=== PATIENT | male | born 1960 | race Caucasian/White ===

== ENCOUNTER 2017-12-16 02:53 | Inpatient (IN) | payer BC ==
[~2017-12-16] VITALS: Ht 167.6 cm; Wt 93.1 kg
[2017-12-16 04:18] LABS: Basophils # (auto) 0.1 uL; Basophils % (auto) 0.5 % (0.0-2.0); Eosinophils # (auto) 0.4 uL; Eosinophils % (auto) 1.3 % (0.0-7.0); Hematocrit 42.2 % (41.0-53.0); Hemoglobin 14.4 g/dL (13.5-17.5); Lymphocytes # (auto) 1.1 uL; Lymphocytes % (auto) 3.9 % (10.0-50.0); Mean Corpuscular Hemoglobin 32.3 pg (28.0-32.0); Mean Corpuscular Hgb Conc. 34.1 g/dL (32.0-36.0); Mean Corpuscular Volume 94.6 fL (80.0-100.0); Monocytes # (auto) 1.2 uL; Monocytes % (auto) 4.5 % (0.0-12.0); Neutrophils # (auto) 24.5 uL; Neutrophils % (auto) 89.8 % (37.0-80.0); Platelet Count (auto) 142 10^3/uL (140-450); Red Blood Cells 4.46 10^6/uL (4.5-5.90); Red Cell Distribution Width 13.5 % (11.8-14.3); White Blood Cell 27.2 10^3/uL (4.4-10.8)
[2017-12-16 04:20] LABS: Alanine Aminotransferase 24 U/L (16-61); Albumin 3.1 g/dL (3.4-5.0); Anion Gap 10 (5-15); Aspartate Aminotransferase 15 U/L (15-37); BUN/Creatinine Ratio 19.8; Blood Urea Nitrogen 17 mg/dL (7-18); Calcium 8.3 mg/dL (8.5-10.1); Carbon Dioxide 23 mmol/L (21-32); Chloride 108 mmol/L (98-107); GFR African American 118 mL/min; GFR Non-African American 97 mL/min; Glucose 105 mg/dL (74-106); Potassium 3.8 mmol/L (3.5-5.1); Sodium 141 mmol/L (136-145)
[2017-12-16] MEDS ORDERED: fentaNYL CITRATE 5 ML ONE ×2 (04:22→04:57)
[2017-12-16 04:25] LABS: Alkaline Phosphatase 49 U/L (45-117); Bilirubin, Total 0.7 mg/dL (0.2-1.0); Total Protein 5.8 g/dL (6.4-8.2)
[2017-12-16] MEDS ORDERED: fentaNYL CITRATE 100 MCG/2 ML VL IV ONE ×2 (04:30→05:15)
[2017-12-16] MEDS ORDERED: CHOL20007 OR (05:21)
[2017-12-16] MEDS ORDERED: DOCU100T15 PO (05:21)
[2017-12-16] MEDS ORDERED: CEPH-37 PO (05:21)
[2017-12-16] MEDS ORDERED: DEXA0.5E4 PO (05:21)
[2017-12-16] MEDS ORDERED: MORP15TA PO (05:21)
[2017-12-16] MEDS ORDERED: FLUC200T50 PO (05:21)
[2017-12-16] MEDS ORDERED: LORA-622 PO (05:21)
[2017-12-16] MEDS ORDERED: SULF400T11 PO (05:21)
[2017-12-16] MEDS ORDERED: ACYC400T GT (05:21)
[2017-12-16] MEDS ORDERED: IOHEXOL 350 MG/ML 100ML IJ ONE (05:27)
[2017-12-16] MEDS ORDERED: LORazepam 0.5 MG TAB PO PRN (10:00)
[2017-12-16] MEDS ORDERED: TEMAZEPAM 15 MG CAP PO PRN (10:00)
[2017-12-16] MEDS ORDERED: ONDANSETRON HCL 4 MG/2 ML VIAL IV PRN (10:00)
[2017-12-16] MEDS ORDERED: LORATADINE 10 MG TAB PO ONE ×2 (10:00→15:15)
[2017-12-16] MEDS ORDERED: LACTULOSE 20Gm/30ML SOLN PO PRN (10:00)
[2017-12-16] MEDS ORDERED: NITROGLYCERIN 0.4 MG SL TAB SL PRN (10:00)
[2017-12-16] MEDS ORDERED: MORPHINE SULFATE 4 MG/ML SYR/VIAL IV PRN ×2 (10:00)
[2017-12-16] MEDS ORDERED: traMADol HCL 50 MG TAB PO PRN (10:00)
[2017-12-16] MEDS: NITROGLYCERIN 0.2MG/HR TOPICAL PATCH TD SCH (10:35)
[2017-12-16] MEDS: PANTOPRAZOLE 40 MG TAB PO SCH (10:35)
[2017-12-16] MEDS: ENOXAPARIN SOD 40 MG/0.4 ML SYRINGE SC SCH (10:35)
[2017-12-16] MEDS: SODIUM CHLORIDE 0.9% 1,000 ML IV SCH ×2 (10:37→23:00)
[2017-12-16] MEDS: ASPirin 81 mg TAB PO SCH (10:37)
[2017-12-16] MEDS ORDERED: CEPHALEXIN 500 MG PO SCH (12:00)
[2017-12-16] MEDS: CEPHALEXIN 250 MG CAP PO SCH ×2 (12:55→18:44)
[2017-12-16] MEDS ORDERED: ACETAMINOPHEN 500 MG TAB PO PRN (13:45)
[2017-12-16] MEDS ORDERED: PATIENTS OWN MEDICATION (Morphine Sulfate 1 TAB) PO SCH (14:00)
[2017-12-16] MEDS ORDERED: MORPHINE SULF 15mg ER tab PO SCH (14:00)
[2017-12-16] MEDS ORDERED: HYDROmorphone HCL 2 MG/ML VL IV PRN (15:15)
[2017-12-16 16:08] VITALS: BP 128/79
[2017-12-16 16:58] VITALS: BP 125/77
[2017-12-16] MEDS: ACETAMINOPHEN 325 MG TAB PO SCH (18:45)
[2017-12-16 22:00] VITALS: BP 121/78
[2017-12-16] MEDS: MORPHINE SULF 30 mg ER tab PO SCH (22:45)
[2017-12-16] MEDS: ACYCLOVIR 400 MG TAB PO SCH (22:45)
[2017-12-17] MEDS: ACETAMINOPHEN 325 MG TAB PO SCH ×3 (01:14→10:23)
[2017-12-17] MEDS: CEPHALEXIN 250 MG CAP PO SCH ×3 (01:14→12:23)
[2017-12-17 05:00] VITALS: BP 109/70
[2017-12-17 06:22] LABS: Basophils # (auto) 0.1 uL; Basophils % (auto) 0.2 % (0.0-2.0); Eosinophils # (auto) 0.6 uL; Eosinophils % (auto) 2.2 % (0.0-7.0); Hematocrit 39.2 % (41.0-53.0); Hemoglobin 13.5 g/dL (13.5-17.5); Lymphocytes # (auto) 1.2 uL; Lymphocytes % (auto) 4.1 % (10.0-50.0); Mean Corpuscular Hemoglobin 32.6 pg (28.0-32.0); Mean Corpuscular Hgb Conc. 34.3 g/dL (32.0-36.0); Mean Corpuscular Volume 94.8 fL (80.0-100.0); Monocytes # (auto) 1.5 uL; Monocytes % (auto) 5.2 % (0.0-12.0); Neutrophils # (auto) 25.2 uL; Neutrophils % (auto) 88.3 % (37.0-80.0); Nucleated Red Blood Cells % 0.1 %; Platelet Count (auto) 133 10^3/uL (140-450); Red Blood Cells 4.13 10^6/uL (4.5-5.90); Red Cell Distribution Width 13.4 % (11.8-14.3); White Blood Cell 28.5 10^3/uL (4.4-10.8)
[2017-12-17 06:58] LABS: Cholesterol 115 mg/dL (< 200); HDL Cholesterol 64 mg/dL (40-59); LDL Cholesterol 51 mg/dL (< 100); Triglycerides 66 mg/dL (< 150)
[2017-12-17 09:00] VITALS: BP 102/66
[2017-12-17] MEDS ORDERED: [UNRECOGNIZED DRUG - OTHER] PO SCH (10:00)
[2017-12-17] MEDS ORDERED: PATIENTS OWN MEDICATION (Docusate Sodium 100 MG) PO SCH (10:00)
[2017-12-17] MEDS ORDERED: FILGRASTIM (TBO) 300 MCG/0.5 ML SYRG SC SCH (10:00)
[2017-12-17] MEDS ORDERED: FILGRASTIM(TBO) 480 MCG/0.8 ML SYRG SC SCH ×2 (10:00→17:00)
[2017-12-17] MEDS ORDERED: FLUCONAZOLE 100 MG TAB PO SCH (10:00)
[2017-12-17] MEDS: ASPirin 81 mg TAB PO SCH (10:00)
[2017-12-17] MEDS ORDERED: PATIENTS OWN MEDICATION (Cholecalciferol (Vitamin D3) 2,000 UNIT) OR SCH (10:00)
[2017-12-17] MEDS: NITROGLYCERIN 0.2MG/HR TOPICAL PATCH TD SCH (10:00)
[2017-12-17] MEDS ORDERED: DOCUSATE SOD 100 MG CAP PO SCH (10:00)
[2017-12-17] MEDS ORDERED: LORATADINE 10 MG TAB PO SCH (10:00)
[2017-12-17] MEDS ORDERED: FLUCONAZOLE 100 MG PO SCH (10:00)
[2017-12-17] MEDS ORDERED: CHOLECALCIFEROL (VITD3) 1,000 UNIT TAB PO SCH (10:00)
[2017-12-17] MEDS ORDERED: SULFAMETHOX W/TRIMETH(800/160MG) DS TAB PO SCH (10:00)
[2017-12-17] MEDS: PANTOPRAZOLE 40 MG TAB PO SCH (10:22)
[2017-12-17] MEDS: MORPHINE SULF 30 mg ER tab PO SCH (10:22)
[2017-12-17] MEDS: ENOXAPARIN SOD 40 MG/0.4 ML SYRINGE SC SCH (10:23)
[2017-12-17] MEDS: ACYCLOVIR 400 MG TAB PO SCH (10:23)
[2017-12-17 13:00] VITALS: BP 105/65
[2017-12-17 13:11] VITALS: BP 105/65
[2017-12-17] MEDS ORDERED: FILGRASTIM SC SCH (17:00)
== END 2017-12-17 13:40 | disposition home or self-care (01) | DRG 842 ==
LOC: EDBD 02:53 → ER 02:57 → TELE 02:58 → TELE-EAST 14:47
PROVIDERS: ADMIT Internal Medicine; ATTEND Internal Medicine
DX: C90.00 Multiple myeloma not having achieved remission (principal); R07.89 Other chest pain; N40.0 Benign prostatic hyperplasia without lower urinary tract symptoms; D72.829 Elevated white blood cell count, unspecified; Z92.21 Personal history of antineoplastic chemotherapy; Z80.1 Family history of malignant neoplasm of trachea, bronchus and lung; Z88.5 Allergy status to narcotic agent; Z88.0 Allergy status to penicillin
CPT/HCPCS: 36415; 71045; 71046; 71275; 80053; 80061; 82550; 84443; 84484; 85025; 85652; 86141; 93005; 93306; 96361; 96374; 96375; J1447; J2405